=== PATIENT | male | born 1970 | race Caucasian/White ===

== ENCOUNTER 2017-06-11 09:25 | Emergency (ER) | payer OTHER ==
[~2017-06-11] VITALS: Ht 170.2 cm; Wt 98.9 kg
[~2017-06-11 09:25] MED LIST: ATIVAN1 MG PO; DEPAKOTE500 MG PO; DILANTIN PO; DILANTIN100 MG PO; DILAUDID8 MG PO; ELA50 PO; FLA500 PO; KEP500 PO; KEPPRA1000 M1 PO; LAC PO; NOR10T PO; PHENOBARBITAL; SEROQUEL300 MG PO
[2017-06-11 10:57] VITALS: BP 135/68
== END 2017-06-11 10:57 | disposition home or self-care (01) ==
LOC: ED 09:25
DX: J20.9 Acute bronchitis, unspecified (principal); F17.210 Nicotine dependence, cigarettes, uncomplicated

== ENCOUNTER 2017-08-21 05:25 | Emergency (ER) | payer OTHER ==
[~2017-08-21] VITALS: Ht 170.2 cm; Wt 102.3 kg
[2017-08-21 05:35] VITALS: Ht 170.2 cm; Wt 102.3 kg
[2017-08-21 09:05] VITALS: BP 125/72
== END 2017-08-21 09:58 | disposition home or self-care (01) ==
LOC: ED 05:25
DX: S80.02XA Contusion of left knee, initial encounter (principal); W18.39XA Other fall on same level, initial encounter; Y93.89 Activity, other specified; Y92.89 Other specified places as the place of occurrence of the external cause; Y99.8 Other external cause status; Z88.1 Allergy status to other antibiotic agents; Z88.0 Allergy status to penicillin; Z88.5 Allergy status to narcotic agent

== ENCOUNTER 2017-10-03 08:42 | Emergency (ER) | payer OTHER ==
[~2017-10-03] VITALS: Ht 170.2 cm; Wt 99.8 kg
[2017-10-03 08:52] VITALS: BP 137/70; Ht 170.2 cm; Wt 99.8 kg
== END 2017-10-03 09:58 | disposition home or self-care (01) ==
LOC: ED 08:42
DX: S83.92XA Sprain of unspecified site of left knee, initial encounter (principal); Z88.0 Allergy status to penicillin; Z88.5 Allergy status to narcotic agent; Z88.6 Allergy status to analgesic agent; X50.1XXA Overexertion from prolonged static or awkward postures, initial encounter; Y93.89 Activity, other specified; Y92.89 Other specified places as the place of occurrence of the external cause; Y99.8 Other external cause status

== ENCOUNTER 2018-03-23 17:08 | Inpatient (IN) | payer OTHER ==
[~2018-03-23] VITALS: Ht 170.2 cm; Wt 91.3 kg
[~2018-03-23 17:08] MED LIST changes: -SEROQUEL300 MG PO
[2018-03-23 17:28] VITALS: Ht 170.2 cm; Wt 91.3 kg
[2018-03-23 18:59] LABS: BASOPHIL % 0.4 % (0-2); PLATELET COUNT 331 x10^3mcL (130-400)
[2018-03-23 19:26] LABS: CALCIUM 9.1 mg/dL (8.5-10.1); CARBON DIOXIDE 23.2 mmol/L (21-32); CHLORIDE SERUM 108 mmol/L (98-107); CREATININE SERUM 0.9 mg/dL (0.7-1.3); GFR1 > 60 mL/min; GLUCOSE SERUM 118 mg/dL (74-106); POTASSIUM SERUM 3.5 mmol/L (3.5-5.1); SODIUM SERUM 141 mmol/L (136-145)
[2018-03-23 19:31] LABS: ALBUMIN 3.7 g/dL (3.4-5.0); ALKALINE PHOSPHATASE 88 U/L (46-116); ALT/SGPT 65 U/L (16-63); AST/SGOT 35 U/L (15-37); BILIRUBIN TOTAL 0.44 mg/dL (0.20-1.00)
[2018-03-23 20:48] LABS: CHOLESTEROL/HDL RATIO 4.4; MAGNESIUM 2.4 mg/dL (1.8-2.4); PHOSPHOROUS 2.7 mg/dL (2.5-4.9)
[2018-03-23 20:54] LABS: FREE T4 1.04 ng/dL (0.76-1.46); FREE THYROXINE INDEX 2.9 ug/dL (1.4-4.5); T4(THYROXINE) 8.9 ug/dL (4.7-13.3)
[2018-03-23 21:08] VITALS: BP 105/61
[2018-03-23 21:18] LABS: T3 TOTAL 1.21 ng/mL
[2018-03-24 04:51] LABS: microscopic required? YES; urine erythrocyte NEGATIVE (NEGATIVE)
[2018-03-24 05:01] LABS: AMPHETAMINE QUAL UR NONE DETECTED (See below)
[2018-03-24 05:27] VITALS: BP 103/51
[2018-03-24 07:24] LABS: CALCIUM 8.5 mg/dL (8.5-10.1); CARBON DIOXIDE 22.9 mmol/L (21-32); CHLORIDE SERUM 111 mmol/L (98-107); CREATININE SERUM 0.9 mg/dL (0.7-1.3); GFR1 > 60 mL/min; GLUCOSE SERUM 93 mg/dL (74-106); POTASSIUM SERUM 3.2 mmol/L (3.5-5.1); SODIUM SERUM 141 mmol/L (136-145)
[2018-03-24 07:25] LABS: BASOPHIL % 0.5 % (0-2); PLATELET COUNT 267 x10^3mcL (130-400)
[2018-03-24 09:47] VITALS: BP 98/52
[2018-03-24 13:49] VITALS: BP 100/58
[2018-03-24] MEDS ORDERED: IBUPROFEN400 MG PO (15:25)
[2018-03-24 15:37] VITALS: BP 100/58
[2018-03-24] MEDS ORDERED: SEROQUEL300 MG PO (15:37)
== END 2018-03-24 16:19 | disposition home or self-care (01) | DRG 248 ==
LOC: ED 17:08 → DU 19:41
PROVIDERS: Emergency Medicine; Family Medicine
DX: A04.72 Enterocolitis due to Clostridium difficile, not specified as recurrent (principal); E72.20 Disorder of urea cycle metabolism, unspecified; K76.0 Fatty (change of) liver, not elsewhere classified; M94.0 Chondrocostal junction syndrome [Tietze]; K86.1 Other chronic pancreatitis; R73.03 Prediabetes; B18.2 Chronic viral hepatitis C; E78.5 Hyperlipidemia, unspecified; G89.29 Other chronic pain; M54.9 Dorsalgia, unspecified; F15.90 Other stimulant use, unspecified, uncomplicated; F31.9 Bipolar disorder, unspecified; E66.9 Obesity, unspecified; E87.6 Hypokalemia; G40.909 Epilepsy, unspecified, not intractable, without status epilepticus; F17.210 Nicotine dependence, cigarettes, uncomplicated; Z79.899 Other long term (current) drug therapy; Z86.73 Personal history of transient ischemic attack (TIA), and cerebral infarction without residual deficits; Z82.49 Family history of ischemic heart disease and other diseases of the circulatory system; Z56.0 Unemployment, unspecified; Z68.31 Body mass index [BMI] 31.0-31.9, adult; Z83.3 Family history of diabetes mellitus; Z72.89 Other problems related to lifestyle
CPT/HCPCS: 83880; 84439; 87046; 87046-59; C9113; G0480; J0696; J1200; J2270; J2405; J7030; Q0092; Q0162

== ENCOUNTER 2018-04-07 15:59 | Emergency (ER) | payer OTHER ==
[~2018-04-07] VITALS: Ht 170.2 cm; Wt 88.9 kg
[~2018-04-07 15:59] MED LIST changes: +IBUPROFEN400 MG PO; +SEROQUEL300 MG PO
[2018-04-07 16:03] VITALS: Ht 170.2 cm; Wt 88.9 kg
[2018-04-07 16:55] LABS: BASOPHIL % 0.3 % (0-2); PLATELET COUNT 334 x10^3mcL (130-400); RED CELL DISTRIBUTION WIDTH 13.7 % (11.5-14.5)
[2018-04-07 17:09] LABS: CALCIUM 9.9 mg/dL (8.5-10.1); CARBON DIOXIDE 21.9 mmol/L (21-32); CHLORIDE SERUM 104 mmol/L (98-107); CREATININE SERUM 1.1 mg/dL (0.7-1.3); GFR1 > 60 mL/min; GLUCOSE SERUM 108 mg/dL (74-106); POTASSIUM SERUM 3.9 mmol/L (3.5-5.1); SODIUM SERUM 139 mmol/L (136-145)
[2018-04-07 17:13] LABS: ALBUMIN 4.5 g/dL (3.4-5.0); ALKALINE PHOSPHATASE 120 U/L (46-116); ALT/SGPT 65 U/L (16-63); AST/SGOT 34 U/L (15-37); BILIRUBIN TOTAL 0.65 mg/dL (0.20-1.00); LIPASE 149 IU/L (73-393)
[2018-04-07 17:24] LABS: TOTAL PROTEIN, SERUM 10.1 g/dL (6.4-8.2)
[2018-04-07 18:28] VITALS: BP 114/79
== END 2018-04-07 18:28 | disposition home or self-care (01) ==
LOC: ED 15:59
PROVIDERS: Emergency Medicine
DX: E86.0 Dehydration (principal); F17.210 Nicotine dependence, cigarettes, uncomplicated; G89.29 Other chronic pain; Z86.73 Personal history of transient ischemic attack (TIA), and cerebral infarction without residual deficits; Z87.19 Personal history of other diseases of the digestive system
CPT/HCPCS: J1885; J2550; J7030

== ENCOUNTER 2018-05-23 21:32 | Inpatient (IN) | payer OTHER ==
[~2018-05-23] VITALS: Ht 170.2 cm; Wt 96.8 kg
[2018-05-23 23:05] LABS: CALCIUM 8.8 mg/dL (8.5-10.1); CARBON DIOXIDE 24.9 mmol/L (21-32); CHLORIDE SERUM 108 mmol/L (98-107); GFR1 > 60 mL/min; GLUCOSE SERUM 143 mg/dL (74-106); POTASSIUM SERUM 3.5 mmol/L (3.5-5.1); SODIUM SERUM 140 mmol/L (136-145)
[2018-05-23 23:10] LABS: ALBUMIN 3.4 g/dL (3.4-5.0); ALKALINE PHOSPHATASE 78 U/L (46-116); ALT/SGPT 72 U/L (16-63); AST/SGOT 73 U/L (15-37); BILIRUBIN TOTAL 0.2 mg/dL (0.20-1.00); TOTAL PROTEIN, SERUM 7.4 g/dL (6.4-8.2)
[2018-05-23 23:20] LABS: PLATELET COUNT 253 x10^3mcL (130-400); RED CELL DISTRIBUTION WIDTH 12.9 % (11.5-14.5)
[2018-05-23 23:23] LABS: BASOPHIL % 0 % (0-2)
[2018-05-24] MEDS ORDERED: AMITRIPTYLINE H50 MG PO (00:08)
[2018-05-24] MEDS ORDERED: NOR10T PO (00:08)
[2018-05-24 02:20] VITALS: BP 104/61
[2018-05-24 02:49] LABS: CHOLESTEROL/HDL RATIO 4.5; MAGNESIUM 2.1 mg/dL (1.8-2.4); PHOSPHOROUS 3.2 mg/dL (2.5-4.9)
[2018-05-24 02:57] LABS: FREE T4 1.04 ng/dL (0.76-1.46); FREE THYROXINE INDEX 3.2 ug/dL (1.4-4.5); T4(THYROXINE) 10.4 ug/dL (4.7-13.3)
[2018-05-24 02:58] LABS: T3 TOTAL 1.75 ng/mL
[2018-05-24 04:52] VITALS: BP 101/60
== END 2018-05-24 06:50 | disposition left against medical advice (07) | DRG 198 ==
LOC: ED 21:32 → DU 05-24 01:49
PROVIDERS: Emergency Medicine; Internal Medicine
DX: I24.9 Acute ischemic heart disease, unspecified (principal); K86.1 Other chronic pancreatitis; R55 Syncope and collapse; F17.210 Nicotine dependence, cigarettes, uncomplicated; G89.29 Other chronic pain; E78.5 Hyperlipidemia, unspecified; Z53.21 Procedure and treatment not carried out due to patient leaving prior to being seen by health care provider; B18.2 Chronic viral hepatitis C; F32.9 Major depressive disorder, single episode, unspecified; M54.9 Dorsalgia, unspecified; G40.909 Epilepsy, unspecified, not intractable, without status epilepticus; Z86.73 Personal history of transient ischemic attack (TIA), and cerebral infarction without residual deficits; Z82.49 Family history of ischemic heart disease and other diseases of the circulatory system; Z83.3 Family history of diabetes mellitus; Z90.49 Acquired absence of other specified parts of digestive tract
CPT/HCPCS: 83880; 84439; 85378; J2270; J2405; Q0092

== ENCOUNTER 2018-07-12 10:12 | Emergency (ER) | payer OTHER ==
[~2018-07-12] VITALS: Ht 170.2 cm; Wt 95.7 kg
[~2018-07-12 10:12] MED LIST changes: +AMITRIPTYLINE H50 MG PO
[2018-07-12 10:21] VITALS: Ht 170.2 cm; Wt 95.7 kg
[2018-07-12 12:13] VITALS: BP 100/60
== END 2018-07-12 12:13 | disposition home or self-care (01) ==
LOC: ED 10:12
DX: M72.2 Plantar fascial fibromatosis (principal); F17.210 Nicotine dependence, cigarettes, uncomplicated; G89.29 Other chronic pain; Z86.73 Personal history of transient ischemic attack (TIA), and cerebral infarction without residual deficits; Z86.19 Personal history of other infectious and parasitic diseases; Z98.890 Other specified postprocedural states
CPT/HCPCS: 82962; Q0092

== ENCOUNTER 2018-11-14 11:49 | Emergency (ER) | payer OTHER ==
[~2018-11-14] VITALS: Ht 170.2 cm; Wt 89.4 kg
[2018-11-14 11:55] VITALS: Ht 170.2 cm; Wt 89.4 kg
[2018-11-14 13:22] VITALS: BP 111/78
== END 2018-11-14 13:22 | disposition home or self-care (01) ==
LOC: ED 11:49
DX: S16.1XXA Strain of muscle, fascia and tendon at neck level, initial encounter (principal); G89.29 Other chronic pain; M54.9 Dorsalgia, unspecified; Z98.890 Other specified postprocedural states; W22.8XXA Striking against or struck by other objects, initial encounter; Y93.89 Activity, other specified; Y92.89 Other specified places as the place of occurrence of the external cause; Y99.8 Other external cause status
CPT/HCPCS: Q0092

== ENCOUNTER 2019-02-07 09:04 | Emergency (ER) | payer OTHER ==
[~2019-02-07] VITALS: Ht 170.2 cm; Wt 85.7 kg
[2019-02-07 09:08] VITALS: Ht 170.2 cm; Wt 85.7 kg
[2019-02-07 10:21] VITALS: BP 101/59
== END 2019-02-07 10:26 | disposition home or self-care (01) ==
LOC: ED 09:04
DX: L03.312 Cellulitis of back [any part except buttock and flank] (principal); G89.29 Other chronic pain; Z98.890 Other specified postprocedural states; Z86.73 Personal history of transient ischemic attack (TIA), and cerebral infarction without residual deficits

== ENCOUNTER 2020-04-10 16:44 | Emergency (ER) | payer OTHER ==
[~2020-04-10] VITALS: Ht 170.2 cm; Wt 75.3 kg
[2020-04-10 17:04] VITALS: Ht 170.2 cm; Wt 75.3 kg
[2020-04-10 18:05] VITALS: BP 105/63
== END 2020-04-10 18:05 | disposition home or self-care (01) ==
LOC: ED 16:44
DX: L03.113 Cellulitis of right upper limb (principal); F17.210 Nicotine dependence, cigarettes, uncomplicated; Z86.73 Personal history of transient ischemic attack (TIA), and cerebral infarction without residual deficits
CPT/HCPCS: 82962; J0696

== ENCOUNTER 2020-04-13 19:29 | Emergency (ER) | payer OTHER ==
[~2020-04-13] VITALS: Ht 170.2 cm; Wt 73.0 kg
[2020-04-13 20:10] VITALS: BP 100/62
== END 2020-04-13 20:10 | disposition home or self-care (01) ==
LOC: ED 19:29
DX: L02.413 Cutaneous abscess of right upper limb (principal); F17.210 Nicotine dependence, cigarettes, uncomplicated; Z86.73 Personal history of transient ischemic attack (TIA), and cerebral infarction without residual deficits; Z71.6 Tobacco abuse counseling; W57.XXXA Bitten or stung by nonvenomous insect and other nonvenomous arthropods, initial encounter; Y93.89 Activity, other specified; Y92.89 Other specified places as the place of occurrence of the external cause; Y99.8 Other external cause status
CPT/HCPCS: 99406